=== PATIENT | female | born 1945 | race Caucasian/White ===

== ENCOUNTER 2024-03-13 05:56 | Inpatient (IN) | payer MEDICARE, OTHER, SELFPAY ==
[2024-02-14 11:09] LABS: Hematocrit 40.9 % (37.0-47.0); Hemoglobin 13.8 g/dL (12.0-16.0); Mean Corp Hgb Conc. 33.7 g/dL (33.0-37.0); Mean Corpuscular Hgb 30.6 pg (27.0-31.0); Mean Corpuscular Volume 90.7 fL (81.0-99.0); Mean Platelet Volume 9.2 fL (7.4-10.4); Platelet Count 290 10^3/uL (130-400); Red Blood Cell Count 4.51 10^6/uL (4.20-5.40); White Blood Cell Count 5.4 10^3/uL (4.8-10.8)
[2024-02-14 12:15] LABS: ALT (SGPT) 19 U/L (0-35); AST (SGOT) 24 U/L (14-36); Albumin 4.6 g/dl (3.5-5.0); Alkaline Phosphatase 77 U/L (38-126); Blood Urea Nitrogen 18 mg/dl (7-17); Calcium 9.8 mg/dl (8.4-10.2); Carbon Dioxide 27 mmol/L (22-30); Chloride 103 mmol/L (98-107); Glucose 95 mg/dl (70-99); Potassium 4.3 mmol/L (3.5-5.1); Sodium 141 mmol/L (135-145); Total Bilirubin 0.7 mg/dl (0.2-1.3); Total Protein 6.9 g/dl (6.3-8.2); eGFR > 60.00
[2024-02-14 12:47] LABS: Glycohemoglobin (HgbA1c) 5.4 % (4.0-5.6)
[2024-02-14 14:01] VITALS: BMI 27.7
[2024-03-07 08:51] VITALS: BMI 27.7
[2024-03-13] VITALS (19 sets, daily range): BP systolic 97–144; BP diastolic 56–82; PULSE 85; O2SAT 98
[2024-03-13] MEDS: CELEBREX 200 MG PO (06:17)
[2024-03-13] MEDS: TYLENOL 650 MG PO ×5 (06:18→23:53)
[2024-03-13] MEDS: NORMOSOL-R/PLASMALYTE-A 1000 IV ×2 (06:28→12:18)
--- NOTE | 2024-03-13 06:52 | W.DS.TRANS ---
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
-
Discharge Instructions:
Sleep Apnea Risk Low
Discharge Diagnosis/Procedures L TKA Dr. Oh 03/13/24
Diet As tolerated
Activity With Walker
Driving Restrictions No driving
Bathing Restrictions OK to Shower
Other Services PT
Instructions:
Stand-Alone Forms: Total Hip/Knee Replacement D/C
Changes to Home Medications: Yes
Discharge Medications:
DC Medications w/original date entered in [employer]
atorvastatin 10 mg tablet 10 mg PO QPM High Cholesterol 02/25/16
valsartan 160 mg tablet 160 mg PO DAILY Blood Pressure 09/20/22
duloxetine 60 mg capsule,delayed release 60 mg PO DAILY 03/07/24
levothyroxine 50 mcg tablet 50 mcg PO DAILY 03/07/24
mupirocin 2 % topical ointment 1 applic topical BID 03/07/24
omeprazole magnesium 20 mg tablet,delayed release (Prilosec OTC) 20 mg PO DAILY 03/07/24
acetaminophen 325 mg tablet (Tylenol) 650 mg (2 x 325 mg) PO QID #1 tab 03/13/24
aspirin 325 mg tablet 325 mg PO DAILY blood clot prevention #1 tab 03/13/24
celecoxib 100 mg capsule 100 mg PO BID Anti-inflammatory #14 caps 03/13/24
dexamethasone 4 mg tablet 4 mg PO BID inflammation #6 tabs 03/13/24
docusate sodium 100 mg capsule (Colace) 100 mg PO BID stool softner #1 cap 03/13/24
magnesium hydroxide 400 mg/5 mL oral suspension (Milk of Magnesia) 30 ml PO HS PRN Constipation #1 mL 03/13/24
ondansetron 4 mg disintegrating tablet 4 mg PO Q6H PRN n/v #20 tabs 03/13/24
oxycodone 5 mg tablet 5 mg PO Q6H PRN 1 tab moderate pain, 2 tabs severe pain #30 tabs 03/13/24
sennosides 8.6 mg tablet (Senokot) 17.2 mg (2 x 8.6 mg) PO BID laxative #2 tabs 03/13/24
Home Medication Changes
acetaminophen 325 mg tablet (Tylenol) 650 mg (2 x 325 mg) PO QID #1 tab 03/13/24
aspirin 325 mg tablet 325 mg PO DAILY blood clot prevention #1 tab 03/13/24
celecoxib 100 mg capsule 100 mg PO BID Anti-inflammatory #14 caps 03/13/24
dexamethasone 4 mg tablet 4 mg PO BID inflammation #6 tabs 03/13/24
docusate sodium 100 mg capsule (Colace) 100 mg PO BID stool softner #1 cap 03/13/24
magnesium hydroxide 400 mg/5 mL oral suspension (Milk of Magnesia) 30 ml PO HS PRN Constipation #1 mL 03/13/24
ondansetron 4 mg disintegrating tablet 4 mg PO Q6H PRN n/v #20 tabs 03/13/24
oxycodone 5 mg tablet 5 mg PO Q6H PRN 1 tab moderate pain, 2 tabs severe pain #30 tabs 03/13/24
sennosides 8.6 mg tablet (Senokot) 17.2 mg (2 x 8.6 mg) PO BID laxative #2 tabs 03/13/24
Pending Results: No
[2024-03-13] MEDS: ROXICODONE 5 MG PO (10:34)
[2024-03-13] MEDS: DECADRON 4 MG IV ×2 (13:29→19:33)
--- NOTE | 2024-03-13 13:50 | PTCARENOTE ---
Patient admitted from [facility] for left total knee replacement.Neurovascular assessment is within normal limits and ongoing.Vital signs are stable.The patient rates her pain at a 1 out of 10.The Mepilex dressing is intact without drainage.The patient is
in her bed with the call del angel in place.
[2024-03-13] MEDS: DIOVAN PO (15:22)
[2024-03-13] MEDS: ULTRAM PO (15:23)
[2024-03-13] MEDS: CYMBALTA DELAYED RELEASE 60 MG PO (15:27)
[2024-03-13] MEDS: ANCEF 5 IV ×2 (15:27→23:53)
--- NOTE | 2024-03-13 15:43 | OR.RPT ---
Addendum entered and electronically signed by Berhane Oh MD 03/13/24 15:57:
See corrected listing of implants:
- Tonny Persona CR Femur, size 9
- Tonny Persona tibia base plate, size D
- Tonny Persona medial constrained articular surface, 12 mm
- All-polyethylene patellar component, size 32
- DJO Buckeye bone cement
Original Note:
Operative Report
Operative Report
Orthopaedic Surgery Operative Note
DATE OF OPERATION: 03/13/2024
PREOPERATIVE DIAGNOSES: Osteoarthritis, left knee.
POSTOPERATIVE DIAGNOSES: Osteoarthritis, left knee.
OPERATION PERFORMED:
1) Left total knee arthroplasty (CPT 83489)
2) Intraosseous administration of analgesic (CPT 68013)
SURGEON: Berhane Oh MD
ASSISTANTS: Ben David PA-C who helped with patient and limb positioning and retraction
ANESTHESIA: Spinal by anesthesia plus intraoperative infusion of morphine into the tibial metaphysis by Dr. Oh
COMPLICATIONS: None.
ESTIMATED BLOOD LOSS: 20mL
DRAINS: None
TOURNIQUET TIME: 49 minutes.
IMPLANTS:
- Tonny Persona CR Femur, size 9
- Tonny Persona tibia base plate, size D
- Tonny Persona ultracongruent articular surface, 32 mm
- All-polyethylene patellar component, size 12
- DJO Buckeye bone cement
INDICATIONS: The patient presented to my office with debilitating left knee pain due to osteoarthritis. We reviewed the natural history of this problem, as well as the risks, benefits, and alternatives of various treatment options. The patient
exhausted all nonoperative treatment options and wished to proceed with knee replacement surgery. The patient understood the risks which included, but were not limited to, bleeding, infection, failure to relieve pain, more pain than preop, damage to
blood vessels and nerves, need for reoperation, mechanical failure of the implants, wound healing problems, stiffness, instability, blood clot, pulmonary embolism, myocardial infarction, pneumonia, arrhythmia, CVA, and . The patient accepted
these risks and wished to proceed. All questions were answered, and informed consent was obtained.
PROCEDURE IN DETAIL: The patient was identified in the preoperative holding area. The left knee was identified as the operative site. The patient was taken in the operating room and placed in a supine position on the operating table. Spinal
anesthesia was performed. IV antibiotics and tranexamic acid were administered. An SCD was placed on the right lower extremity. A well-padded tourniquet was placed on the proximal thigh. All bony prominences were well padded. The left lower
extremity was prepped and draped in the usual sterile fashion.
We performed a surgical time-out. An interarticular block was performed with local anesthetic with epinephrine. The limb was exsanguinated with an Esmarch bandage, then the tourniquet was inflated to 250 mmHg. I performed interosseous administration
of morphine-saline solution via a Jamshidi style intraosseous needle into the proximal medial tibial metaphysis as described by Guevara Omalley MD. This was performed to aid in pain control. A midline skin incision was made followed by a medial
parapatellar arthrotomy. A subperiosteal peel was performed on the medial tibia. I excised part of the infrapatellar fat pad to improve our visualization as well as tissue over anterior femur. The patella was everted and the knee was flexed. I
excised the remnants of the anterior and posterior cruciate ligaments as well as tibial and femoral osteophytes with rongeurs.
The knee was flexed, and the extramedullary tibial cutting guide was aligned. [place] was aligned at neutral, rotation was centered on the tibial tubercle, and coronal alignment was aligned with the mechanical axis of the tibia and center of the ankle
joint. The cut height was 10mm off the lateral tibia joint surface. The guide was secured into place. The MCL and LCL were protected. The tibia surface was cut. The cut surface was inspected after removal to ensure appropriate height and slope based
on the preoperative plan. The cut was checked with a drop audrey. It was centered nicely at the ankle.
A drill was used to open the femoral canal. The intramedullary distal femoral cutting guide was inserted into the femur. This was set at 5 degrees +0. This was secured into place with three pins. The cut level was checked with an liya wing. The
distal femur was cut through the cutting guide. The IM guide was reinserted to double check that the level of resection was flush and in appropriate alignment.
Kaylie's line and the transepicondylar axis were marked on the femur. The femoral sizing guide was applied to the anterior femur. Pins were inserted, and the 4-in-1 cutting guide was applied and secured into place. The rotation was compared to
Carroll's line, the transepicondylar axis, and the neutral tibia cut and was found to be appropriate. The width was checked and found to be appropriate and lateralized on the femur. The anterior, posterior, and chamfur cuts were made. A lamina
veneer glue spreader was used to open the flexion gap, and posterior osteophytes were removed with a curved osteotome. The remnant medial and lateral meniscus were also removed. I prophylactically cauterized the lateral geniculate arteries. A 10mm spacer block
was applied to the flexion gap and was noted to be balanced medially and laterally. The knee was extended, and the block showed symmetric to extension and flexion gaps.
The tibia was exposed and sized. Rotation was set in line with the tibial tubercle and congruent with the femur. The trial was secured into place with two pins. The trial femur was impacted into place, and a trial articular surface was placed. The
knee was taken through range of motion and noted to be stable throughout the arc of motion without gaping or excess tension. In extension, a measured resection of the patella was performed. The patella was sized, and lug holes were drilled. A trial
patella component was applied, and it was noted to track centrally throughout the arc of motion without need for further releases.
The trials were removed. The tibia keel was prepared with the punch and the drill. The bone surfaces were irrigated with sterile saline and dried. The cement was mixed in a vacuum mixer. Cement gun was used to apply cement to the tibial surface and
the undersurface of the tibial implant. Cement was pressurized into the tibial canal and tibia surface. The tibial component was impacted into place. Excess cement was removed. Cement was applied to the femoral surface and the femoral component. The
femoral component was impacted into place, and excess cement removed. A trial articular surface was inserted, and the knee was extended while the cement polymerized. The tourniquet was let down, and meticulous hemostasis was achieved. Dilute
betadine was poured into the wound and allowed to soak for 3 minutes. The knee was irrigated with copious normal saline.
Once the cement was polymerized, the trial articular surface was removed. Any excess cement was removed. The knee was trialed, and the final articular surface was selected and inserted into the tibial locking mechanism. The knee was reduced. A fresh
drape was applied to the surgical field.
The arthrotomy was closed with 0-PDS. Once closed, an interarticular block was performed with local anesthetic with epi. The deep dermal layer was closed with 2-0 PDS, and the subcuticular skin was closed with 3-0 monocryl. A Dermabond Prineo
dressing was applied to the skin in full flexion. Once this was completely dry, a sterile waterproof dressing was applied.
The anesthesia team performed an adductor canal block in the OR. The patient awoke from anesthesia without any difficulties. The sponge and instrument counts were correct x2 at the end of the case.
Dio Oh MD
[2024-03-13] MEDS: LIPITOR 10 MG PO (17:31)
[2024-03-13] MEDS: ZOFRAN 4 MG IV (17:31)
[2024-03-13] MEDS: ASPIRIN 325 MG PO (17:31)
[2024-03-13] MEDS: COLACE 100 MG PO (19:32)
[2024-03-13] MEDS: SENOKOT 17.2 MG PO (19:32)
[2024-03-13] MEDS: TORADOL 15 MG IV (19:33)
[2024-03-13] MEDS: ULTRAM 50 MG PO (19:33)
[2024-03-13] MEDS: PROTONIX 40 MG PO (21:17)
[2024-03-13] MEDS: NEURONTIN 300 MG PO (21:17)
[2024-03-13] MEDS: BACTROBAN 2% OINTMENT 1 APPLIC NASAL (21:55)
[2024-03-14 03:50] VITALS: BP 105/67
[2024-03-14] MEDS: TYLENOL 650 MG PO ×3 (04:00→12:32)
[2024-03-14] MEDS: SYNTHROID 50 MCG PO (05:05)
[2024-03-14 07:50] VITALS: BP 113/69
[2024-03-14] MEDS: ULTRAM 50 MG PO (08:34)
[2024-03-14] MEDS: SENOKOT 17.2 MG PO (08:34)
[2024-03-14] MEDS: ProAmatine 5 MG PO (08:34)
[2024-03-14] MEDS: MOBIC 15 MG PO (08:34)
[2024-03-14] MEDS: ASPIRIN 325 MG PO (08:34)
[2024-03-14] MEDS: CYMBALTA DELAYED RELEASE 60 MG PO (08:34)
[2024-03-14] MEDS: DIOVAN 80 MG PO (08:34)
[2024-03-14] MEDS: COLACE 100 MG PO (08:34)
[2024-03-14] MEDS: TORADOL 15 MG IV (08:35)
[2024-03-14] MEDS: BACTROBAN 2% OINTMENT 1 APPLIC NASAL (08:36)
[2024-03-14] MEDS: DECADRON 4 MG IV (08:42)
[2024-03-14 10:05] VITALS: BP 132/73; PULSE 64; O2SAT 100
[2024-03-14 10:48] VITALS: BP 135/74; PULSE 69
--- NOTE | 2024-03-14 10:53 | W.PN.ORTHO ---
Today's Communication / Plan
-
d/c
Assessment
.
Distal Motor Intact: Yes
Dressing:
Clean, dry and intact.
Plan
.
Surgery / Date: Ko Oh 03/13/24
DVT Prophylaxis: Aspirin
Activity:
Out of bed.
PT/OT
Discharge Plan: Home w/ Outpatient PT
Subjective
.
.:
Patient resting comfortably.
Vital Signs and Labs
.
Vital Signs and Labs:
Lab Results
02/14/24 10:48
02/14/24 10:48
Temp Pulse Resp BP Pulse Ox
97.8 F 76 16 113/69 97
03/14/24 07:50 03/14/24 07:50 03/14/24 07:50 03/14/24 07:50 03/14/24 07:50
Non-invasive Hgb result: 12.5
Physical Exam
-
HEENT: No pallor, cyanosis, or jaundice. Throat clear.
NECK: Supple. No JVD.
RESPIRATORY: Lungs clear to auscultation.
CVS: S1, S2 normal. RRR.� No murmur, rub or gallop.
ABDOMEN: Soft, non-tender. No distension. BS+/normal.
EXTREMITIES: strength equal, no calf pain with palpation
SUBWAY TRAIN OPERATOR: AOx3. No focal deficits. senior teradata developer grossly intact
--- NOTE | 2024-03-14 11:10 | CM ---
Met with pt at bedside
Reports lives alone in a 2 story home; 2 steps to enter, FF set up
Independent, no devices, drives
Friend plans to stay with pt for 2 weeks to assist
DME - rolling walker, single point cane, shower chair, raised toilet seat
SNF - [facility] in past
HH - [facility] in past
Has ride home - daughter
PCP - Megan Avitia
Pharm - [facility]
Plan is for outpatient PT. Has appt scheduled. Has RX. Will have transport
Plan - home with outpatient PT
[2024-03-14 12:00] VITALS: BP 120/72
== END 2024-03-14 13:02 | disposition home or self-care (01) | DRG 470 ==
LOC: 2 SOUTH 05:56
PROVIDERS: ADMITTING PHYSICIAN Orthopaedic Surgery; FAMILY PHYSICIAN Internal Medicine; REFERRING PHYSICIAN Internal Medicine
PROC: 0SRD0J9 Replacement of Left Knee Joint with Synthetic Substitute, Cemented, Open Approach (ICD-10-PCS; 2024-03-13)
DX: M17.12 Unilateral primary osteoarthritis, left knee (principal); E78.00 Pure hypercholesterolemia, unspecified; Z79.890 Hormone replacement therapy; Z87.891 Personal history of nicotine dependence
CPT/HCPCS: 36415; 73560; 80053; 83036; 85027; 87070; 97110; 97116; 97162; 97166; 97530; C1713; C1776